=== PATIENT | female | born 1995 | race Caucasian/White ===

== ENCOUNTER 2019-11-04 14:01 | Emergency (ER) | payer OTHER ==
[2019-11-04 15:43] LABS: ABS Basophils 0.1 10^3/ul (0-0.2); ABS Eosinophils 0.7 10^3/ul (0-0.6); ABS Monocytes 0.8 10^3/ul (0-0.8); ABS Neutrophils 10.4 10^3/ul (1.5-7.7); Eosinophil % 5.2 %; Hematocrit 38 % (35-47); Hemoglobin 13.5 g/dL (12.0-16.0); Lymphocyte % 14.1 %; Mean Corpuscular HGB Conc 36 g/dL (31-36); Mean Corpuscular Hemoglobin 30 pg (27-31); Mean Corpuscular Volume 86 fL (80-97); Mean Platelet Volume 8.2 fL (7.4-10.4); Platelet Count 341 10^3/uL (150-450); Red Blood Count 4.42 10^6 /uL (3.70-4.87); Red Cell Distribution Width 13 % (10-15)
[2019-11-04 16:03] LABS: Albumin 3.8 g/dL (3.2-5.2); Albumin/Globulin Ratio 1.3 (1-3); BUN/Creatinine Ratio 11.9 (8-20); C Reactive Protein 28.7 mg/L (<8.01); Calcium 8.9 mg/dL (8.6-10.3); EGFR African American 152.8 (>60); EGFR Non-African American 126.3 (>60); Globulin 2.9 g/dL (2-4); Potassium 3.5 mmol/L (3.5-5.0); Total Bilirubin 0.3 mg/dL (0.2-1.0); Total Protein 6.7 g/dL (6.4-8.9)
[2019-11-04 16:10] LABS: HCG Pregnancy 0.79 mIU/mL
[2019-11-04 16:32] LABS: Rapid Strep Molecular Negative (Negative)
[2019-11-04 16:36] VITALS: BP 115/73
--- NOTE | 2019-11-04 16:42 | ED ---
HPI Febrile Illness - HPI Summary HPI Summary: This patient is a 24-year-old female who presents to the ED with chief complaint of approximately 1.5 weeks of "viral illness." States for approximately 1 week, she has been in bed with diffuse joint aches. She also noted to have a rash to her bilateral hands and upper forearms. She was able to be seen at [facility] who diagnosed her with viral syndrome with the potential for sypc-icol-opi-mouth disease. She was told to take over-the- counter medications, rest and drink plenty of fluids. Patient was seen at [facility] urgent [facility] and a flu swab was obtained which was negative. She states she came to the ED immediately following for further evaluation. She does state her symptoms have improved over the past week or so, however she continues to feel lethargic. Denies any joint pains currently. Denies any rash. Does endorse some throat pain at this time, no DARNELL, neck pain, photophobia. Mild cough without production. Most concerning for patient is fatigue and nearly 2 weeks of symptoms. No fevers at this time, but had a fever for nearly 1 week. No abd pain, urinary symptoms, vaginal discharge or chance of STD's or . No recent travel. - History of Current Complaint Chief Complaint: EDGeneral Time Seen by Provider: 11/04/19 14:41 Hx Obtained From: Patient Onset/Duration: Started Hours Ago Timing: Constant Initial Severity: Mild Current Severity: Mild Pain Intensity: 5 Pain Scale Used: 0-10 Numeric Aggravating Factors: Nothing Alleviating Factors: Nothing Associated Signs and Symptoms: Arthralgia, Myalgia, Sore Throat - Risk Factors Pseudomonas Risk Factors: Negative Serious Bacterial Infection Risk Factors: Negative - Allergy/Home Medications Allergies/Adverse Reactions: Allergies Allergy/AdvReac Type Severity Reaction Status Date / Time cefaclor [From [facility]] Allergy Hives Verified 11/04/19 14:05 Sulfa (Sulfonamide Allergy Hives Verified 11/04/19 14:05 Antibiotics) Home Medications: Home Medications Fexofenadine/Pseudoephedrine [Letty-D 24 Hour Tablet] 1 each PO DAILY [History Confirmed 11/04/19] Norethindrone-E.estradiol-Iron [Blisovi Fe 1.5/30 1.5-30 mg-Mcg] 1 tab PO DAILY 11/04/19 [History Confirmed 11/04/19] PMH/Surg Hx/FS Hx/Imm Hx Previously Healthy: Yes - Immunization History Hx Pertussis Vaccination: No Immunizations Up to Date: Yes Infectious Disease History: No Infectious Disease History: Denies: Traveled Outside the [place] in Last 30 Days - Social History Occupation: Unemployed, Student Lives: Dormitory/Roommates Alcohol Use: Occasionally Hx Substance Use: No Substance Use Type: Reports: None Hx Tobacco Use: No Smoking Status (MU): Never Smoked Tobacco Review of Systems Positive: Fever, Chills, Fatigue. Negative: Skin Diaphoresis Positive: Sore Throat Negative: Palpitations, Chest Pain Positive: Cough. Negative: Shortness Of Breath Positive: Nausea. Negative: Abdominal Pain, Vomiting, Diarrhea Positive: Arthralgia, Myalgia Positive: Rash - improved Negative: Headache, Weakness, Paresthesia, Numbness, Syncope, Slurred Speech All Other Systems Reviewed And Are Negative: Yes Physical Exam Triage Information Reviewed: Yes Vital Signs On Initial Exam: Initial Vitals Temp Pulse Resp BP Pulse Ox 97.6 F 90 18 124/80 99 11/04/19 14:02 11/04/19 14:02 11/04/19 14:02 11/04/19 14:02 11/04/19 14:02 Vital Signs Reviewed: Yes Appearance: Positive: Well-Appearing, Well-Nourished - fatigued Skin: Positive: Warm, Skin Color Reflects Adequate Perfusion Head/Face: Positive: Normal Head/Face Inspection Eyes: Positive: EOMI, SIVA, Conjunctiva Clear Neck: Positive: Supple, No Lymphadenopathy Respiratory/Lung Sounds: Positive: Clear to Auscultation, Breath Sounds Present Cardiovascular: Positive: RRR, Pulses are Symmetrical in both Upper and Lower Extremities. Negative: Leg Edema Left, Leg Edema Right Musculoskeletal: Positive: Normal, Strength/ROM Intact Neurological: Positive: Speech Normal Psychiatric: Positive: Normal, Affect/Mood Appropriate AVPU Assessment: Alert Procedures - Sedation Patient Received Moderate/Deep Sedation with Procedure: No Diagnostics - Vital Signs Vital Signs Temp Pulse Resp BP Pulse Ox 11/04/19 16:35 97.8 F 78 16 115/73 99 11/04/19 14:02 97.6 F 90 18 124/80 99 - Laboratory Lab Results: Lab Results 11/04/19 11/04/19 11/04/19 Range/Units 14:10 15:38 15:38 WBC 14.0 H (3.5-10.8) 10^3/uL RBC 4.42 (3.70-4.87) 10^6 /uL Hgb 13.5 (12.0-16.0) g/dL Hct 38 (35-47) % MCV 86 (80-97) fL MCH 30 (27-31) pg MCHC 36 (31-36) g/dL RDW 13 (10-15) % Plt Count 341 (150-450) 10^3/uL MPV 8.2 (7.4-10.4) fL Neut % (Auto) 74.3 % Lymph % (Auto) 14.1 % [place] % (Auto) 5.6 % Eos % (Auto) 5.2 % Baso % (Auto) 0.8 % Absolute Neuts (auto) 10.4 H (1.5-7.7) 10^3/ul Absolute Lymphs (auto) 2.0 (1.0-4.8) 10^3/ul Absolute Monos (auto) 0.8 (0-0.8) 10^3/ul Absolute Eos (auto) 0.7 H (0-0.6) 10^3/ul Absolute Basos (auto) 0.1 (0-0.2) 10^3/ul Absolute Nucleated RBC 0.0 10^3/ul Nucleated RBC % 0.0 Sodium 137 (135-145) mmol/L Potassium 3.5 (3.5-5.0) mmol/L Chloride 102 (101-111) mmol/L Carbon Dioxide 28 (22-32) mmol/L Anion Gap 7 (2-11) mmol/L BUN 7 (6-24) mg/dL Creatinine 0.59 (0.51-0.95) mg/dL Est GFR ( Amer) 152.8 (>60) Est GFR (Non-Af Amer) 126.3 (>60) BUN/Creatinine Ratio 11.9 (8-20) Glucose 89 (70-100) mg/dL Calcium 8.9 (8.6-10.3) mg/dL Total Bilirubin 0.30 (0.2-1.0) mg/dL AST 29 (13-39) U/L ALT 36 (7-52) U/L Alkaline Phosphatase 81 (34-104) U/L C-Reactive Protein 28.70 H (<8.01) mg/L Total Protein 6.7 (6.4-8.9) g/dL Albumin 3.8 (3.2-5.2) g/dL Globulin 2.9 (2-4) g/dL Albumin/Globulin Ratio 1.3 (1-3) Beta HCG, Quant 0.79 mIU/mL Monoscreen Negative (Negative) Group A Strep Rapid Negative (Negative) Result Diagrams: 11/04/19 15:38 11/04/19 15:38 Lab Statement: Any lab studies that have been ordered have been reviewed, and results considered in the medical decision making process. Course/Dx - Course Course Of Treatment: On physical examination, patient appears well. She does appear to be fatigued, however nondiaphoretic and nontoxic appearing. Lungs are CTA, RRR. No cervical LAD. Slight pharyngeal erythema without tonsillar exudate bilaterally. No abd tenderness. No rash noted to the skin. Labs obtained which show a elevated WBC and CRP. Left shift noted. VS stable and patient afebrile. Strep negative. Monospot negative. CXR negative. Per patient, rash has dissipated in the past few days. No oral lesions. Encouraged pt to f/u with [facility] this week. She is dx with viral syndrome, but may need further eval if symptoms persist. - Febrile Illness Differential Diagnoses: Fever of Unknown Origin, Viremia, Other: - fatigue, viral syndrome, rash - Diagnoses Provider Diagnoses: Viral syndrome Discharge ED - Sign-Out/Discharge Documenting (check all that apply): Patient Departure - Discharge Plan Condition: Stable Disposition: HOME Patient Education Materials: Viral Syndrome (ED) Forms: *School Release Referrals: No Primary Care Phys,NOPCP [Primary Care Provider] - Additional Instructions: Most likely, you have a viral syndrome. Often these take time to clear and improve. You have an elevated white count which could be indicative of either a viral or bacterial illness. Since your tests in the ED were negative, this is more likely a viral syndrome. I will call you with any POSITIVE results of strep and urine. Please follow up with [facility] next week and you can always return here to the emergency room. Out of school x 2 days Rest and drink plenty of fluids - Billing Disposition and Condition Condition: STABLE Disposition: Home
[2019-11-04 16:45] LABS: Urine Appearance Clear; Urine Bilirubin Negative (Negative); Urine Blood 3+ (Negative); Urine Color Yellow; Urine Glucose Negative (Negative); Urine Ketones Negative (Negative); Urine Nitrite Negative (Negative); Urine Protein Negative (Negative); Urine Specific Gravity 1.014 (1.010-1.030); Urine Urobilinogen Negative (Negative)
[2019-11-04 16:47] LABS: Urine Bacteria Absent (Absent); Urine Red Blood Cell 3+(>10/hpf) (Absent); Urine Squamous Epithelial Cell Present (Absent); Urine White Blood Cell Absent (Absent)
== END 2019-11-04 16:35 | disposition home or self-care (01) ==
LOC: ED 14:01
DX: B34.9 Viral infection, unspecified (principal); Z88.1 Allergy status to other antibiotic agents; Z88.2 Allergy status to sulfonamides
CPT/HCPCS: 36415; 71046; 80053; 81003; 81015; 84702; 85025; 86140; 86308; 87651; 99282